=== PATIENT | male | born 1975 | race Caucasian/White ===

== ENCOUNTER 2017-07-26 11:43 | Emergency (ER) | payer BC ==
[~2017-07-26 11:43] MED LIST: FAMO20 PO; Z.0.NO CURRENT MEDS
[2017-07-26 11:50] VITALS: BP 168/108; PULSE 96; RESP 18; TEMP 99.1; O2SAT 98
[2017-07-26 11:59] VITALS: BP 194/113; PULSE 91; RESP 18; O2SAT 97
[2017-07-26] MEDS ORDERED: ORPHENADRINE INJ 60 MG/2 ML AMP IM ONE (12:15)
--- NOTE | 2017-07-26 12:51 | RADRPT ---
EXAM DATE/TIME: 07/26/2017 12:12 [facility] COMPARISON: No previous studies available for comparison. INDICATIONS : Fell off roof last night, entire left hand swollen and painful MEDICAL HISTORY : None. SURGICAL HISTORY : None. ENCOUNTER: Initial ACUITY: 1 day PAIN SCORE: 8/10 LOCATION: Left hand FINDINGS: Three view examination of the left hand demonstrates no evidence of dislocation, or fracture. The c arpal bones appear intact. The interphalangeal and metacarpophalangeal joints are intact. Bony mine ralization is normal. CONCLUSION: No evidence of fracture or dislocation. Jadon Foster MD on July 26, 2017 at 12:47 Board Certified Radiologist. This report was verified electronically.
--- NOTE | 2017-07-26 12:52 | RADRPT ---
EXAM DATE/TIME: 07/26/2017 12:16 [facility] COMPARISON: No previous studies available for comparison. INDICATIONS : Fell off roof last night, pain in neck, right shoulder and left hand MEDICAL HISTORY : None. SURGICAL HISTORY : None. ENCOUNTER: Initial ACUITY: 1 day PAIN SCORE: 10/10 LOCATION: Right shoulder FINDINGS: Multiple view examination of the right shoulder demonstrates no evidence of fracture or dislocation. The glenohumeral and acromioclavicular joints are maintained. There is normal range of motion betwe en internal and external rotation. Bony mineralization is normal. CONCLUSION: Intact right shoulder without evidence of fracture or dislocation. Jadon Foster MD on July 26, 2017 at 12:49 Board Certified Radiologist. This report was verified electronically.
--- NOTE | 2017-07-26 12:56 | PD ---
HPI Chief Complaint: Fall Time Seen by Provider: 12:02 Travel History International Travel<30 days: No Contact w/Intl Traveler<30days: No Traveled to known affect area: No History of Present Illness HPI Patient 42-year-old male who presents emergency department after having fallen off a ladder yesterday while putting up [place] lights. He is complaining of neck and high back pain. Denies loss consciousness denies any chest pain abdominal pain nausea vomiting blood in the stool. States the pain is rather severe, worsens when he turns his neck, not associated with radiation down his arms and nor numbness and tingling in his hands or feet. PFSH Past Medical History Medical History: Denies Significant Hx Heart Rhythm Problems: Yes (heart murmur) Cardiac Catheterization: No Cardiovascular Problems: No High Cholesterol: No Congestive Heart Failure: No Diabetes: No GERD: Yes Hypertension: No Myocardial Infarction: No Tetanus Vaccination: < 5 Years Past Surgical History Abdominal Surgery: Yes (RIGHT INGUINAL HERNIA REPAIR WITH MESH) Coronary Artery Bypass Graft: No Other Surgery: Yes (l leg screws and pins, hernia) Social History Alcohol Use: Yes Tobacco Use: Yes (1/2 ppd) Substance Use: No Allergies-Medications (Allergen,Severity, Reaction): Coded Allergies: codeine (Unverified Allergy, Severe, HALU[facility], 07/26/17) Reported Meds & Prescriptions Reported Meds & Active Scripts Active Ultram (Tramadol HCl) 50 Mg Tab 50 Mg PO Q6H PRN Flexeril (Cyclobenzaprine HCl) 10 Mg Tab 10 Mg PO TID Review of Systems Except as stated in HPI: all other systems reviewed are Neg Physical Exam Narrative GENERAL: Well-developed well-nourished no obvious distress SKIN: Focused skin assessment warm/dry. HEAD: Atraumatic. Normocephalic. EYES: Pupils equal and round. No scleral icterus. No injection or drainage. ENT: No nasal bleeding or discharge. Mucous membranes pink and moist. NECK: Trachea midline. No JVD. CARDIOVASCULAR: Regular rate and rhythm. No murmur appreciated. RESPIRATORY: No accessory muscle use. Clear to auscultation. Breath sounds equal bilaterally. GASTROINTESTINAL: Abdomen soft, non-tender, nondistended. Hepatic and splenic margins not palpable. MUSCULOSKELETAL: No obvious deformities. No clubbing. No cyanosis. No edema. No midline CT or L-spine tenderness, there is some tenderness left of midline in his neck. Extremities atraumatic., There is some minimal tenderness about the lateral aspect of the left hand. NEUROLOGICAL: Awake and alert. No obvious cranial nerve deficits. Motor grossly within normal limits. Normal speech. PSYCHIATRIC: Appropriate mood and affect; insight and judgment normal. Data Data Last Documented VS Vital Signs Date Time Temp Pulse Resp B/P (MAP) Pulse Ox O2 Delivery O2 Flow Rate FiO2 07/26/17 14:59 07/26/17 14:45 82 18 98 Room Air 07/26/17 11:[address] Cerv Spine W/O Contrast (07/26/17 ) Ct Brain W/O Iv Contrast(Rout) (07/26/17 ) Shoulder, Complete (>2vws) (07/26/17 ) Hand, Complete ([id number]) (07/26/17 ) Orphenadrine Inj (Norflex Inj) (07/26/17 12:15) Collar [place] (07/26/17 ) Acetamin-Hydrocod 325-5 Mg ([place] 5-325 (07/26/17 14:30) Pjea-Cet-Cvfbcw (Booster) Inj (Boostrix (07/26/17 14:30) Ed Discharge Order (07/26/17 14:31) MDM Medical Decision Making Medical Screen Exam Complete: Yes Emergency Medical Condition: Yes Differential Diagnosis Fall, neck strain, neck sprain, Neck fracture unlikely, head injury unlikely. Hand injury. Narrative Course Patient roomed in the emergency department, my impression of him is that he had a fall from approximately 15 feet on a ladder he thinks he landed on his left side or back. Relative paucity of physical exam findings to suggest severe injury, basic imaging as performed below, discussed symptomatic management returned ED criteria but he is stable for discharge at this time. Last 24 hours Impressions Shoulder X-Ray 07/26/17 0000 Signed Impressions: Service Date/Time: June 12:16 - CONCLUSION: Intact right shoulder without evidence of fracture or dislocation. Jadon Foster MD Head CT 07/26/17 0000 Signed Impressions: Service Date/Time: June 13:20 - CONCLUSION: Negative trauma CT Almas Sosa MD Hand X-Ray 07/26/17 0000 Signed Impressions: Service Date/Time: June 12:12 - CONCLUSION: No evidence of fracture or dislocation. Jadon Foster MD Cervical Spine CT 07/26/17 0000 Signed Impressions: Service Date/Time: June 13:22 - CONCLUSION: Negative trauma CT. Almas Sosa MD Diagnosis Primary Impression: Neck pain Additional Impression: Fall Med/Other Pt SpecificInfo: Prescription(s) given Scripts Tramadol (Ultram) 50 Mg Tab 50 MG PO Q6H Y for PAIN, #10 TAB 0 Refills Prov: Mode Orta MD 07/26/17 Cyclobenzaprine (Flexeril) 10 Mg Tab 10 MG PO TID for Muscle Spasm, #20 TAB 0 Refills Prov: Mode Orta MD 07/26/17 Disposition: 01 DISCHARGE HOME Condition: Stable Mode Orta MD Jul 26, 2017 12:56
--- NOTE | 2017-07-26 13:38 | RADRPT ---
EXAM DATE/TIME: 07/26/2017 13:20 [facility] COMPARISON: No previous studies available for comparison. INDICATIONS : Head pain due to fall. RADIATION DOSE: 56.35 CTDIvol (mGy) MEDICAL HISTORY : Heart murmur SURGICAL HISTORY : Hernia sx ENCOUNTER: Initial ACUITY: 2 days PAIN SCALE: 9/10 LOCATION: Bilateral cranial posterior. TECHNIQUE: Multiple contiguous axial images were obtained of the head. Using automated exposure control and adj ustment of the mA and/or kV according to patient size, radiation dose was kept as low as reasonably a chievable to obtain optimal diagnostic quality images. DICOM format image data is available electro nically for review and comparison. FINDINGS: CEREBRUM: The ventricles are normal for age. No evidence of midline shift, mass lesion, hemorrhage or acute in farction. No extra-axial fluid collections are seen. POSTERIOR FOSSA: The cerebellum and brainstem are intact. The 4th ventricle is midline. The cerebellopontine angle i s unremarkable. EXTRACRANIAL: The visualized portion of the orbits is intact. SKULL: The calvaria is intact. No evidence of skull fracture. CONCLUSION: Negative trauma CT Almas Sosa MD on July 26, 2017 at 13:35 Board Certified Radiologist. This report was verified electronically.
--- NOTE | 2017-07-26 13:57 | RADRPT ---
EXAM DATE/TIME: 07/26/2017 13:22 [facility] COMPARISON: No previous studies available for comparison. INDICATIONS : Neck pain due to fall off roof. RADIATION DOSE: 27.65 CTDIvol (mGy) MEDICAL HISTORY : Heart murmur. SURGICAL HISTORY : Hernia repair sx. ENCOUNTER: Initial ACUITY: 2 days PAIN SCALE: 9/10 LOCATION: Bilateral posterior neck region. TECHNIQUE: Volumetric scanning of the cervical spine was performed. Multiplanar reconstructions i n the sagittal, coronal and oblique axial planes were performed. Using automated exposure control a nd adjustment of the mA and/or kV according to patient size, radiation dose was kept as low as reason ably achievable to obtain optimal diagnostic quality images. DICOM format image data is available e lectronically for review and comparison. FINDINGS: The sagittal reconstructions demonstrate normal alignment and normal prevertebral soft tissues. The d ens is intact and there is a normal atlantoaxial relationship. The axial images demonstrate that the vertebral bodies and posterior elements are intact. The soft ti ssues are within normal limits. There is no evidence of acute fracture or malalignment. CONCLUSION: Negative trauma CT. Almas Sosa MD on July 26, 2017 at 13:54 Board Certified Radiologist. This report was verified electronically.
[2017-07-26] MEDS ORDERED: TRAM50 PO (14:30)
[2017-07-26] MEDS ORDERED: CYCL10TA PO (14:30)
[2017-07-26] MEDS ORDERED: ACETAMINOPHEN/HYDROcodone 325 MG/5 MG TAB PO ONE (14:30)
[2017-07-26] MEDS ORDERED: DIPHTH/TETANUS/ACEL PERTUSSIS (BOOSTER) 0.5 ML VIAL/PFS IM ONE (14:30)
[2017-07-26 14:45] VITALS: BP 168/102; PULSE 82; RESP 18; O2SAT 98
== END 2017-07-26 14:59 | disposition home or self-care (01) ==
LOC: NEPC 11:43
DX: M54.2 Cervicalgia (principal); M54.6 Pain in thoracic spine; M79.642 Pain in left hand; F17.200 Nicotine dependence, unspecified, uncomplicated; Z23 Encounter for immunization; Z86.79 Personal history of other diseases of the circulatory system; Z87.19 Personal history of other diseases of the digestive system; W11.XXXA Fall on and from ladder, initial encounter; Y93.89 Activity, other specified
CPT/HCPCS: 70450; 72125; 73030; 73130; 90471; 90715; 96372; 99285; J2360; L0150